=== PATIENT | male | born 1940 | race Caucasian/White ===

== ENCOUNTER 2016-12-31 19:04 | Emergency (ER) | payer MEDICARE ==
[2016-12-31] MEDS ORDERED: Lidocaine/Epi 1.5%-1:200,000* 30 ML VIAL INJ ONE (20:11)
--- NOTE | 2016-12-31 21:14 | ED ---
Laceration/Wound HPI - HPI Summary HPI Summary: 76M presents with laceration to right wrist. He hit it with a saw. He denies any numbness or tingling. he is right handed. he has full ROM. his tetanus believes was 4 years ago. he is on blood thinners but bleeding is controlled at the moment. - History of Current Complaint Stated Complaint: RT ARM LAC Time Seen by Provider: 12/31/16 19:44 Pain Intensity: 0 - Allergy/Home Medications Allergies/Adverse Reactions: Allergies Allergy/AdvReac Type Severity Reaction Status Date / Time No Known Allergies Allergy Verified 12/31/16 19:20 PMH/Surg Hx/FS Hx/Imm Hx Endocrine/Hematology History: Reports: Hx Anticoagulant Therapy Cardiovascular History: Reports: Hx Hypertension Infectious Disease History: No Infectious Disease History: Denies: Traveled Outside the [place] in Last 30 Days - Family History Known Family History: Positive: Cardiac Disease - Social History Alcohol Use: Occasionally Substance Use Type: Reports: None Smoking Status (MU): Never Smoked Tobacco Review of Systems Negative: Fever Negative: Chest Pain Negative: Shortness Of Breath Positive: Other - right wrist lac All Other Systems Reviewed And Are Negative: Yes Physical Exam Triage Information Reviewed: Yes Vital Signs On Initial Exam: Initial Vitals Temp Pulse Resp BP Pulse Ox 98.9 F 82 16 119/66 96 12/31/16 19:22 12/31/16 19:22 12/31/16 19:22 12/31/16 19:22 12/31/16 19:22 Vital Signs Reviewed: Yes Appearance: Positive: Well-Appearing Skin: Positive: Warm, Dry, Other - 3cm laceration right wrist Head/Face: Positive: Normal Head/Face Inspection Eyes: Positive: Normal Respiratory/Lung Sounds: Positive: Clear to Auscultation, Breath Sounds Present Cardiovascular: Positive: Normal, RRR Musculoskeletal: Positive: Strength/ROM Intact - right wrist, Other - good pulses, capillary refill<2 secs Procedures - Laceration/Wound Repair 1 Location: Other - right wrist Description: Linear Anesthesia: Local, 1.0% Length, Depth and Shape: 3cm by 1/4cm deep Betadine Prep?: Yes Irrigated w/ Saline (ccs): 300 Closure: Single Layer Suture Type: Prolene - 4-0 Number of Sutures: 3 Diagnostics - Vital Signs Vital Signs Temp Pulse Resp BP Pulse Ox 12/31/16 19:22 98.9 F 82 16 119/66 96 - Laboratory Lab Statement: Any lab studies that have been ordered have been reviewed, and results considered in the medical decision making process. Laceration Repair Course/Dx - Course Course Of Treatment: 76M presents with laceration to right wrist. He hit it with a saw. He denies any numbness or tingling. he is right handed. he has full ROM. his tetanus believes was 4 years ago. he is on blood thinners but bleeding is controlled at the moment. placed 3 sutures. patient understands and agrees with plan. - Differential Dx Differental Diagnoses: Abrasion, Avulsion, Laceration - Clinical Impression Provider Diagnoses: Laceration of right upper arm Discharge - Discharge Plan Condition: Good Disposition: HOME Patient Education Materials: Care For Your Stitches (ED) Referrals: No Primary Care Phys,NOPCP [Primary Care Provider] - Additional Instructions: Take Tylenol or ibuprofen for pain Keep area clean and dry for 48 hours Return to ED or primary in 10-14 days to have sutures removed Return to ED if develop signs of infection such as fever, spreading redness, or pus.
[2016-12-31 21:25] VITALS: BP 108/75
== END 2016-12-31 21:24 | disposition home or self-care (01) ==
LOC: ED 19:04
DX: S61.511A Laceration without foreign body of right wrist, initial encounter (principal); W22.8XXA Striking against or struck by other objects, initial encounter; Y93.9 Activity, unspecified; Y92.9 Unspecified place or not applicable
CPT/HCPCS: 12002; 96374; 99281